=== PATIENT | male | born 1970 | race Caucasian/White ===

== ENCOUNTER 2016-08-01 16:45 | Emergency (ER) | payer OTHER ==
[~2016-08-01] VITALS: Ht 185.4 cm; Wt 87.3 kg
[~2016-08-01 16:45] MED LIST: AMOXICILLIN500 MG PO; BACTRIM,SEPT1 TABLET PO; CLEOCIN150 MG PO; DILANTIN100 MG PO; DILAUDID4 MG PO; DOLOPHINE HCL10 MG PO; KEFLEX500 MG PO; METHADONE10 MG/1 M1 PO; MIRALAX255 GM PO; NOHOMEMEDS; PERCOCET 5/31 TABLET PO; PROBIOTIC1 EAC1 PO; VICODIN 5-3001 EACH PO
[2016-08-01] MEDS ORDERED: DEPAKOTE250 MG PO (17:48)
[2016-08-01 17:57] LABS: ADD MIUA? NO; BILIRUBIN NEGATIVE; BLOOD NEGATIVE; COLOR YELLOW ((YELLOW)); GLUCOSE (STRIP) NEGATIVE; KETONES 5; LEUKOCYTES NEGATIVE; NITRITE NEGATIVE; PROTEIN (STRIP) NEGATIVE; SPECIFIC GRAVITY 1.013 (1.000-1.030)
[2016-08-01] MEDS ORDERED: NORCO 10/3251 TABLET PO (19:53)
[2016-08-01] MEDS ORDERED: FLEXERIL10 MG PO (19:53)
[2016-08-01] MEDS ORDERED: INDOCIN50 MG PO (19:53)
[2016-08-01 20:03] VITALS: BP 151/75
== END 2016-08-01 20:03 | disposition home or self-care (01) ==
LOC: EME 16:45
PROVIDERS: Physician Assistant
DX: M51.36 Other intervertebral disc degeneration, lumbar region (principal); S39.012A Strain of muscle, fascia and tendon of lower back, initial encounter; F11.20 Opioid dependence, uncomplicated
CPT/HCPCS: 72100; 81003; 99281; 99284; J3010; J7512

== ENCOUNTER 2016-09-04 12:51 | Inpatient (IN) | payer OTHER ==
[~2016-09-04] VITALS: Ht 185.4 cm; Wt 97.3 kg
[~2016-09-04 12:51] MED LIST changes: +DEPAKOTE250 MG PO; +FLEXERIL10 MG PO; +INDOCIN50 MG PO; +NORCO 10/3251 TABLET PO
[2016-09-04 13:33] LABS: MCH 31.3 PG (29.0-34.0); MCHC 34.9 G/DL (30.0-36.0); MCV 89.8 FL (86-99); MEAN PLAT.VOLUME 11.9 uM^3 (9.0-12.4); PLATELET COUNT 215 K/uL (156-360); RBC DIS.WIDTH-SD 45.5 % (39-53); RED BLOOD COUNT 4.12 M/uL (4.00-5.50); WHITE BLOOD COUNT 18.2 K/uL (4.1-10.2)
[2016-09-04 13:40] LABS: BASE EXCESS -2.9 mEq/L (-3 to +3); BICARBONATE 24.4 mEq/L (22-26); CARBOXY HGB 6.7 % (0-5); METHEMOGLOBIN 1.5 % (0-1.5); PCO2 52 mm Hg (35-45); PO2 96 mm Hg (80-100)
[2016-09-04 13:41] LABS: COMMENTS - BLOOD GASES A+C+; SITE RR; pH 7.28 (7.35-7.45)
[2016-09-04 13:43] LABS: DEVICE NRBM; FI02 100 %; O2 FLOW 15 L/MIN
[2016-09-04 13:45] LABS: CHLORIDE 92 mEq/L (99-109); D-DIMER ELISA > 4.00 mg/L FEU (< 0.57); SODIUM 130 mEq/L (136-147)
[2016-09-04 13:48] LABS: ANION GAP 19 MEQ/L (2-14); GLUCOSE 109 mg/dL (70-99)
[2016-09-04 13:49] LABS: TOTAL BILIRUBIN 0.5 mg/dL (0.0-1.0)
[2016-09-04 13:51] LABS: ALKALINE PHOSPHATASE 52 IU/L (3-129); GFR ESTIMATE (CALCULATED) 17 mL/min/
[2016-09-04 13:52] LABS: UREA NITROGEN (BUN) 94 mg/dL (9-23)
[2016-09-04 13:54] LABS: TROP-I INTERPRETATION NEGATIVE; TROPONIN-I 0.03 ng/mL (0.0-0.30)
[2016-09-04 14:50] LABS: EOSINOPHIL (%) 0 % (0-5); IMMATURE GRANULOCYTE (%) 0.4 % (0.0-0.7); IMMATURE GRANULOCYTE COUNT 0.1 K/uL; INSTRUMENT ABS NEUTROPHIL CT 15.1 K/uL; MONOCYTE (%) 5.9 % (3-12); MONOCYTE COUNT 1.1 K/uL (0-0.8); NEUTROPHIL (%) 82.8 % (45-76); NEUTROPHIL COUNT 15.1 K/uL (1.8-6.4)
[2016-09-04] MEDS ORDERED: CELEXA40 MG PO (15:30)
[2016-09-04] MEDS ORDERED: DEPAKOTE500 MG PO (15:30)
[2016-09-04] MEDS ORDERED: XANAX1 MG PO (15:30)
[2016-09-04] MEDS ORDERED: LYRICA100 MG PO (15:30)
[2016-09-04] MEDS ORDERED: VENTOLIN HFA18 GM IH (15:31)
[2016-09-04] MEDS ORDERED: DESYREL100 MG PO (15:31)
[2016-09-04] MEDS ORDERED: ULTRAM50 MG PO (15:31)
[2016-09-04] MEDS ORDERED: IBUPROFEN600 MG PO (15:31)
[2016-09-04 17:36] LABS: BASE EXCESS -4.7 mEq/L (-3 to +3); BICARBONATE 22.1 mEq/L (22-26); COMMENTS - BLOOD GASES A+C+; METHEMOGLOBIN 1.2 % (0-1.5); PCO2 47 mm Hg (35-45); PO2 54 mm Hg (80-100); SITE RR; pH 7.28 (7.35-7.45)
[2016-09-04 17:37] LABS: DEVICE HHFNC; FI02 60 %; O2 FLOW 40 L/MIN; TOTAL RESP RATE 18 resp/min
[2016-09-04 18:44] LABS: BASE EXCESS -5.2 mEq/L (-3 to +3); BICARBONATE 22.9 mEq/L (22-26); CARBOXY HGB 3.3 % (0-5); COMMENTS - BLOOD GASES A+C+; DEVICE MASK VENT; METHEMOGLOBIN 1.2 % (0-1.5); PCO2 56 mm Hg (35-45); PEEP 8 CM/H20; PO2 74 mm Hg (80-100); PRES. SUPPORT 15 CM/H2O; SITE RR
[2016-09-04 18:45] LABS: pH 7.22 (7.35-7.45)
[2016-09-04 19:28] LABS: ADD MIUA? YES; BILIRUBIN NEGATIVE; BLOOD LARGE; COLOR YELLOW ((YELLOW)); GLUCOSE (STRIP) NEGATIVE; KETONES NEGATIVE; LEUKOCYTES NEGATIVE; NITRITE NEGATIVE; PROTEIN (STRIP) NEGATIVE; SPECIFIC GRAVITY 1.006 (1.000-1.030); UROBILINOGEN 0.2 MG/DL (0.2-1.0)
[2016-09-04 19:36] LABS: BACTERIA RARE /HPF; EPITHELIAL CELLS NONE SEEN /HPF; MUCUS TRACE /LPF; RED BLOOD CELLS 0-5 /HPF (0-5); UCUL ADDED? NO; WHITE BLOOD CELLS 0-5 /HPF (0-5)
[2016-09-04 21:09] VITALS: BP 94/57
[2016-09-04 21:15] VITALS: BP 129/72
[2016-09-04 21:30] VITALS: BP 98/60
[2016-09-04 22:00] VITALS: BP 105/64
[2016-09-04 22:25] LABS: BASE EXCESS -3.8 mEq/L (-3 to +3); CARBOXY HGB 2.5 % (0-5); COMMENTS - BLOOD GASES A+C+; DEVICE 840; FI02 80 %; MECHANICAL RATE 18 resp/min; METHEMOGLOBIN 1.6 % (0-1.5); MODE AC; PCO2 64 mm Hg (35-45); PO2 82 mm Hg (80-100); SITE RR; TOTAL RESP RATE 18 resp/min
[2016-09-04 22:26] LABS: PEEP 8 CM/H20; TIDAL VOLUME 500 ML
[2016-09-04 22:45] LABS: METH RESISTANT S AUREUS PCR NEGATIVE (NEGATIVE)
[2016-09-04 22:56] LABS: PROBE CHECK PASS; SPECIMEN PROCESSING CONTROL PASS
[2016-09-04 23:00] VITALS: BP 87/55
[2016-09-04 23:35] LABS: CHLORIDE 99 mEq/L (99-109); POTASSIUM 4.6 mEq/L (3.7-5.4); SODIUM 131 mEq/L (136-147)
[2016-09-04 23:38] LABS: GLUCOSE 108 mg/dL (70-99)
[2016-09-04 23:39] LABS: ANION GAP 13 MEQ/L (2-14); TOTAL BILIRUBIN 0.4 mg/dL (0.0-1.0)
[2016-09-04 23:41] LABS: ALKALINE PHOSPHATASE 50 IU/L (3-129); GFR ESTIMATE (CALCULATED) 19 mL/min/
[2016-09-04 23:42] LABS: UREA NITROGEN (BUN) 88 mg/dL (9-23)
[2016-09-04 23:43] LABS: DIRECT BILIRUBIN 0.2 mg/dL (0.0-0.3)
[2016-09-04 23:57] LABS: POINT-OF-CARE METER ID UU14174217
[2016-09-05] VITALS (26 sets, daily range): BP systolic 0–138; BP diastolic 0–74
[2016-09-05 00:34] LABS: EOSINOPHIL (%) 0.4 % (0-5); EOSINOPHIL COUNT 0.1 K/uL (0-0.3); HEMATOCRIT 32.6 % (38.0-50.0); HEMATOLOGY COMMENT 1 SMEAR COMPATIBLE; IMMATURE GRANULOCYTE (%) 0.3 % (0.0-0.7); INSTRUMENT ABS NEUTROPHIL CT 9.3 K/uL; LYMPHOCYTE COUNT 1.6 K/uL (1.0-2.8); MCH 30.6 PG (29.0-34.0); MCHC 33.7 G/DL (30.0-36.0); MCV 90.6 FL (86-99); MEAN PLAT.VOLUME 11.4 uM^3 (9.0-12.4); MONOCYTE (%) 5.3 % (3-12); MONOCYTE COUNT 0.6 K/uL (0-0.8); NEUTROPHIL (%) 79.7 % (45-76); NEUTROPHIL COUNT 9.3 K/uL (1.8-6.4); PLATELET COUNT 166 K/uL (156-360); RBC DIS.WIDTH-CV 14.1 % (11.8-14.6); RBC DIS.WIDTH-SD 46.8 % (39-53)
[2016-09-05 00:35] LABS: WHITE BLOOD COUNT 11.6 K/uL (4.1-10.2)
[2016-09-05 05:48] LABS: HEMATOCRIT 30.4 % (38.0-50.0); MCH 30.4 PG (29.0-34.0); MCHC 32.9 G/DL (30.0-36.0); MCV 92.4 FL (86-99); MEAN PLAT.VOLUME 11.4 uM^3 (9.0-12.4); PLATELET COUNT 144 K/uL (156-360); RBC DIS.WIDTH-CV 14.6 % (11.8-14.6); RBC DIS.WIDTH-SD 49.8 % (39-53); RED BLOOD COUNT 3.29 M/uL (4.00-5.50); WHITE BLOOD COUNT 10.6 K/uL (4.1-10.2)
[2016-09-05 06:16] LABS: ALKALINE PHOSPHATASE 46 IU/L (3-129); CHLORIDE 101 MEQ/L (99-109); GFR ESTIMATE (CALCULATED) 19 mL/min/; GLUCOSE 104 mg/dL (70-99); MAGNESIUM 2.1 mg/dl (1.3-2.7); POTASSIUM 4.3 MEQ/L (3.7-5.4); SODIUM 133 MEQ/L (136-147); TOTAL BILIRUBIN 0.4 MG/DL (0.0-1.0); TRIGLYCERIDES 204 MG/DL (Normal: <150); UREA NITROGEN (BUN) 81 mg/dL (9-23)
[2016-09-05 06:23] LABS: ANION GAP 9 MEQ/L (2-14); SAMPLE HEMOLYSIS CHECK 0; SAMPLE ICTERIC CHECK 0; SAMPLE LIPEMIA CHECK 0
[2016-09-05 07:33] LABS: CREATINE KINASE 17950 IU/L (1-294)
[2016-09-05 08:14] LABS: Estimated Average Glucose 114 mg/dL (70-123); HEMOGLOBIN A1c (GLYCOHEMOGLOB) 5.6 % HGB (Below 5.7)
[2016-09-05 12:18] LABS: POINT-OF-CARE METER ID UU13113803
[2016-09-05 16:23] LABS: ANION GAP 10 MEQ/L (2-14); CHLORIDE 103 MEQ/L (99-109); GFR ESTIMATE (CALCULATED) 21 mL/min/; GLUCOSE 114 mg/dL (70-99); POTASSIUM 4.2 MEQ/L (3.7-5.4); SAMPLE HEMOLYSIS CHECK 0; SAMPLE ICTERIC CHECK 0; SAMPLE LIPEMIA CHECK 0; SODIUM 137 MEQ/L (136-147); UREA NITROGEN (BUN) 72 mg/dL (9-23); VANCOMYCIN, TROUGH 11.9 MCG/ML (10-20)
[2016-09-05 16:31] LABS: CREATINE KINASE 11013 IU/L (1-294)
[2016-09-05 23:47] LABS: POINT-OF-CARE METER ID UU13113731
[2016-09-06] VITALS (19 sets, daily range): BP systolic 117–169; BP diastolic 65–87
[2016-09-06 08:04] LABS: HEMATOCRIT 30.2 % (38.0-50.0); MCH 30.4 PG (29.0-34.0); MCHC 32.1 G/DL (30.0-36.0); MCV 94.7 FL (86-99); MEAN PLAT.VOLUME 11.1 uM^3 (9.0-12.4); PLATELET COUNT 122 K/uL (156-360); RBC DIS.WIDTH-CV 14.7 % (11.8-14.6); RBC DIS.WIDTH-SD 51.7 % (39-53); RED BLOOD COUNT 3.19 M/uL (4.00-5.50); WHITE BLOOD COUNT 10.2 K/uL (4.1-10.2)
[2016-09-06 08:47] LABS: ALKALINE PHOSPHATASE 47 IU/L (3-129); ANION GAP 12 MEQ/L (2-14); CHLORIDE 107 MEQ/L (99-109); CREATINE KINASE 6563 IU/L (1-294); GFR ESTIMATE (CALCULATED) 24 mL/min/; GLUCOSE 114 mg/dL (70-99); MAGNESIUM 1.8 mg/dl (1.3-2.7); SAMPLE HEMOLYSIS CHECK 0; SAMPLE ICTERIC CHECK 0; SAMPLE LIPEMIA CHECK 0; SODIUM 141 MEQ/L (136-147); TOTAL BILIRUBIN 0.5 MG/DL (0.0-1.0); UREA NITROGEN (BUN) 50 mg/dL (9-23)
[2016-09-06 16:04] LABS: BICARBONATE 25.1 mEq/L (22-26); CARBOXY HGB 2.4 % (0-5); METHEMOGLOBIN 1.7 % (0-1.5)
[2016-09-06 16:05] LABS: COMMENTS - BLOOD GASES +C; DEVICE HFNC; O2 FLOW 10 L/MIN; PCO2 37 mm Hg (35-45); PO2 53 mm Hg (80-100); SITE RR +A; TOTAL RESP RATE 22 resp/min; pH 7.44 (7.35-7.45)
[2016-09-06 16:13] LABS: ANION GAP 15 MEQ/L (2-14); CHLORIDE 106 MEQ/L (99-109); SAMPLE HEMOLYSIS CHECK 1; SAMPLE ICTERIC CHECK 0; SAMPLE LIPEMIA CHECK 0; SODIUM 139 MEQ/L (136-147)
[2016-09-06 16:16] LABS: POTASSIUM 4.1 MEQ/L (3.7-5.4)
[2016-09-06 16:19] LABS: GFR ESTIMATE (CALCULATED) 26 mL/min/; GLUCOSE 82 mg/dL (70-99); UREA NITROGEN (BUN) 45 mg/dL (9-23)
[2016-09-06 17:47] LABS: POINT-OF-CARE METER ID UU13113731
[2016-09-06 23:15] LABS: POINT-OF-CARE METER ID UU13113731
[2016-09-07] VITALS (7 sets, daily range): BP systolic 123–156; BP diastolic 64–84
[2016-09-07 06:33] LABS: ALKALINE PHOSPHATASE 49 IU/L (3-129); ANION GAP 8 MEQ/L (2-14); CHLORIDE 109 MEQ/L (99-109); GFR ESTIMATE (CALCULATED) 29 mL/min/; GLUCOSE 108 mg/dL (70-99); MAGNESIUM 1.8 mg/dl (1.3-2.7); POTASSIUM 3.7 MEQ/L (3.7-5.4); SAMPLE HEMOLYSIS CHECK 0; SAMPLE ICTERIC CHECK 0; SAMPLE LIPEMIA CHECK 0; SODIUM 142 MEQ/L (136-147); TOTAL BILIRUBIN 0.5 MG/DL (0.0-1.0); UREA NITROGEN (BUN) 32 mg/dL (9-23)
[2016-09-07 07:25] LABS: HEMATOCRIT 26.1 % (38.0-50.0); MCH 30.5 PG (29.0-34.0); MCHC 33.3 G/DL (30.0-36.0); MCV 91.6 FL (86-99); MEAN PLAT.VOLUME 10.7 uM^3 (9.0-12.4); PLATELET COUNT 145 K/uL (156-360); RBC DIS.WIDTH-CV 14.8 % (11.8-14.6); RBC DIS.WIDTH-SD 50.2 % (39-53); RED BLOOD COUNT 2.85 M/uL (4.00-5.50)
[2016-09-07 07:30] LABS: WHITE BLOOD COUNT 14.5 K/uL (4.1-10.2)
[2016-09-07 12:40] LABS: POINT-OF-CARE METER ID UU13113731
[2016-09-07 13:07] LABS: TOTAL CK 2088 IU/L (1-294)
[2016-09-07 13:09] LABS: CREATINE KINASE 2088 IU/L (1-294)
[2016-09-07 13:31] LABS: CK-MB 7.1 ng/mL (0.0-4.9)
[2016-09-07 15:23] LABS: ANION GAP 14 MEQ/L (2-14); CHLORIDE 107 MEQ/L (99-109); GFR ESTIMATE (CALCULATED) 31 mL/min/; GLUCOSE 119 mg/dL (70-99); POTASSIUM 3.6 MEQ/L (3.7-5.4); SODIUM 143 MEQ/L (136-147); UREA NITROGEN (BUN) 30 mg/dL (9-23)
[2016-09-08 00:56] VITALS: BP 157/86
[2016-09-08 03:55] VITALS: BP 144/73
[2016-09-08 07:04] LABS: EOSINOPHIL (%) 0 % (0-5); HEMATOCRIT 26.4 % (38.0-50.0); IMMATURE GRANULOCYTE (%) 1.2 % (0.0-0.7); IMMATURE GRANULOCYTE COUNT 0.1 K/uL; INSTRUMENT ABS NEUTROPHIL CT 9.1 K/uL; LYMPHOCYTE COUNT 1.2 K/uL (1.0-2.8); MCH 30.3 PG (29.0-34.0); MCHC 33.3 G/DL (30.0-36.0); MEAN PLAT.VOLUME 11.1 uM^3 (9.0-12.4); MONOCYTE (%) 6.5 % (3-12); MONOCYTE COUNT 0.7 K/uL (0-0.8); NEUTROPHIL (%) 81.3 % (45-76); NEUTROPHIL COUNT 9.1 K/uL (1.8-6.4); PLATELET COUNT 150 K/uL (156-360); RBC DIS.WIDTH-CV 14.6 % (11.8-14.6); RBC DIS.WIDTH-SD 49.1 % (39-53); WHITE BLOOD COUNT 11.2 K/uL (4.1-10.2)
[2016-09-08 07:26] LABS: ALKALINE PHOSPHATASE 47 IU/L (3-129); ANION GAP 11 MEQ/L (2-14); CHLORIDE 105 MEQ/L (99-109); GLUCOSE 121 mg/dL (70-99); MAGNESIUM 1.6 mg/dl (1.3-2.7); POTASSIUM 3.7 MEQ/L (3.7-5.4); SAMPLE HEMOLYSIS CHECK 0; SAMPLE ICTERIC CHECK 0; SAMPLE LIPEMIA CHECK 0; SODIUM 139 MEQ/L (136-147); TOTAL CK 1260 IU/L (1-294); UREA NITROGEN (BUN) 26 mg/dL (9-23)
[2016-09-08 07:29] LABS: CREATINE KINASE 1260 IU/L (1-294); GFR ESTIMATE (CALCULATED) 43 mL/min/; TOTAL BILIRUBIN 0.3 MG/DL (0.0-1.0)
[2016-09-08] MEDS ORDERED: MEDROL DOSEPAK4 MG PO (09:39)
[2016-09-08] MEDS ORDERED: PROTONIX40 MG PO (09:39)
[2016-09-08] MEDS ORDERED: LEVOFLOXACIN750 MG PO (09:39)
== END 2016-09-08 10:20 | disposition left against medical advice (07) | DRG 208 ==
LOC: EME 12:51 → EDOF 17:58 → 4WEST 17:58 → 4EAST 09-07 19:12
PROVIDERS: Emergency Medicine; Internal Medicine; Internal Medicine Nephrology
PROC: 5A1945Z Respiratory Ventilation, 24-96 Consecutive Hours (ICD-10-PCS; principal; 2016-09-04)
PROC: 0BH17EZ Insertion of Endotracheal Airway into Trachea, Via Natural or Artificial Opening (ICD-10-PCS; principal; 2016-09-04)
DX: J96.01 Acute respiratory failure with hypoxia (principal); J96.02 Acute respiratory failure with hypercapnia; N17.9 Acute kidney failure, unspecified; J44.0 Chronic obstructive pulmonary disease with (acute) lower respiratory infection; J18.9 Pneumonia, unspecified organism; G93.41 Metabolic encephalopathy; K92.0 Hematemesis; K70.10 Alcoholic hepatitis without ascites; E87.2 Acidosis; D69.6 Thrombocytopenia, unspecified; F17.200 Nicotine dependence, unspecified, uncomplicated; F11.20 Opioid dependence, uncomplicated; F31.9 Bipolar disorder, unspecified; G40.909 Epilepsy, unspecified, not intractable, without status epilepticus; M62.82 Rhabdomyolysis; Z91.14 Patient's other noncompliance with medication regimen; Z86.19 Personal history of other infectious and parasitic diseases; Z99.81 Dependence on supplemental oxygen; D64.9 Anemia, unspecified; R73.9 Hyperglycemia, unspecified; I12.9 Hypertensive chronic kidney disease with stage 1 through stage 4 chronic kidney disease, or unspecified chronic kidney disease; N18.9 Chronic kidney disease, unspecified; K74.60 Unspecified cirrhosis of liver
CPT/HCPCS: 36600; 71010; 71250; 72131; 74176; 80048 91; 80053; 80076; 80202; 81003; 82271; 82272; 82550; 82550 91; 82553; 82803; 82948; 83036; 83605; 83735; 84100; 84478; 84484; 85025; 85025 91; 85027; 85379; 86900; 86901; 87040; 87502; 87641; 93005; 94002; 94003; 94010; 94640; 94640 76; 94760; 94799; 97530 GO; 99202; 99281; 99285; C9113; J1630; J1644; J1650; J1815; J1956; J2405; J2543; J2704; J2930; J3010; J3370; J3475; J7030; J7050

== ENCOUNTER 2017-10-24 16:10 | Emergency (ER) | payer OTHER ==
[~2017-10-24] VITALS: Ht 185.4 cm; Wt 81.8 kg
[~2017-10-24 16:10] MED LIST changes: +CELEXA40 MG PO; +DEPAKOTE500 MG PO; +DESYREL100 MG PO; +IBUPROFEN600 MG PO; +LEVOFLOXACIN750 MG PO; +LYRICA100 MG PO; +MEDROL DOSEPAK4 MG PO; +PROTONIX40 MG PO; +ULTRAM50 MG PO; +VENTOLIN HFA18 GM IH; +XANAX1 MG PO
[2017-10-24 16:38] LABS: HEMATOCRIT 41.2 % (38.0-50.0); HEMOGLOBIN 14.1 G/DL (12.5-16.6); MCH 31.2 PG (29.0-34.0); MCHC 34.2 G/DL (30.0-36.0); MCV 91.2 FL (86-99); PLATELET COUNT 227 K/uL (156-360); RBC DIS.WIDTH-SD 47.4 % (39-53); RED BLOOD COUNT 4.52 M/uL (4.00-5.50); WHITE BLOOD COUNT 8.7 K/uL (4.1-10.2)
[2017-10-24 16:47] LABS: CHLORIDE 106 mEq/L (99-109); POTASSIUM 4.4 mEq/L (3.7-5.4); SODIUM 139 mEq/L (136-147)
[2017-10-24 16:49] LABS: GLUCOSE 113 mg/dL (70-99)
[2017-10-24 16:53] LABS: GFR ESTIMATE (CALCULATED) > 59 mL/min/ (58.99-99999)
[2017-10-24 16:54] LABS: UREA NITROGEN (BUN) 10 mg/dL (9-23)
[2017-10-24 17:03] LABS: APPEARANCE CLEAR ((CLEAR)); BILIRUBIN NEGATIVE; BLOOD MODERATE; COLOR YELLOW ((YELLOW)); GLUCOSE (STRIP) NEGATIVE; KETONES NEGATIVE; LEUKOCYTES NEGATIVE; NITRITE NEGATIVE; PROTEIN (STRIP) NEGATIVE; SPECIFIC GRAVITY 1.009 (1.000-1.030); UROBILINOGEN 0.2 MG/DL (0.2-1.0)
[2017-10-24 17:13] LABS: BACTERIA NONE SEEN /HPF; EPITHELIAL CELLS NONE SEEN /HPF; HYALINE CASTS 0-5 /LPF; MUCUS TRACE /LPF; UCUL ADDED? NO; WHITE BLOOD CELLS 0-5 /HPF (0-5)
[2017-10-24 17:14] LABS: COCAINE NEGATIVE (150 ng/mL); METHAMPHETAMINE PRESUMPTIVE POSITIVE (500 ng/mL); PHENCYCLIDINE NEGATIVE (25 ng/mL); THC CANNABINOIDS PRESUMPTIVE POSITIVE (50 ng/mL)
[2017-10-24 17:15] LABS: AMPHETAMINE PRESUMPTIVE POSITIVE (500 ng/mL); BARBITURATES NEGATIVE (200 ng/mL); BENZODIAZEPINES PRESUMPTIVE POSITIVE (150 ng/mL); BUPRENORPHINE NEGATIVE (10 ng/mL); METHADONE PRESUMPTIVE POSITIVE (200 ng/mL); OPIATES (MORPHINE) NEGATIVE (100 ng/mL); OXYCODONE NEGATIVE (100 ng/mL); PROPOXYPHENE NEGATIVE (300 ng/mL); TRICYCLIC ANTIDEPRESSANTS NEGATIVE (300 ng/mL)
[2017-10-24 17:28] LABS: CARBAMAZEPINE (TEGRETOL) < 2.0 MCG/ML (4.0-12.0); PHENOBARBITAL < 5.0 MCG/ML (15-40)
[2017-10-24 17:50] LABS: BENZODIAZEPINES, URINE SCREEN POSITIVE (200 ng/mL)
[2017-10-24] MEDS ORDERED: DEPAKOTE250 MG PO (19:31)
[2017-10-24] MEDS ORDERED: DEPAKENE250 MG PO (20:03)
[2017-10-24 22:10] VITALS: BP 118/80
== END 2017-10-24 22:12 | disposition home or self-care (01) ==
LOC: EME 16:10
PROVIDERS: Emergency Medicine
PROC: 0HQ0XZZ Repair Scalp Skin, External Approach (ICD-10-PCS; principal; 2017-10-24)
DX: S01.01XA Laceration without foreign body of scalp, initial encounter (principal); G40.909 Epilepsy, unspecified, not intractable, without status epilepticus; F12.10 Cannabis abuse, uncomplicated; F11.10 Opioid abuse, uncomplicated; F13.10 Sedative, hypnotic or anxiolytic abuse, uncomplicated; Z53.21 Procedure and treatment not carried out due to patient leaving prior to being seen by health care provider; I10 Essential (primary) hypertension; F41.9 Anxiety disorder, unspecified; F32.9 Major depressive disorder, single episode, unspecified; F17.200 Nicotine dependence, unspecified, uncomplicated; Z90.49 Acquired absence of other specified parts of digestive tract; Z88.5 Allergy status to narcotic agent; Z88.6 Allergy status to analgesic agent
CPT/HCPCS: 70450; 80048; 80156; 80184; 80185; 81003; 84999; 85027; 99281; 99285; J1953; J2060; J7050